=== PATIENT | female | born 1960 | race Caucasian/White ===

== ENCOUNTER 2020-03-22 17:16 | Emergency (ER) | payer BC ==
[~2020-03-22] VITALS: Ht 160 cm; Wt 100.0 kg
[2020-03-22] MEDS ORDERED: MORPHINE SULFATE 4 MG/ML VIAL. IV ONE (18:00)
[2020-03-22] MEDS ORDERED: ONDANSETRON PF 4 MG/2 ML VIAL. IV ONE (18:00)
--- NOTE | 2020-03-22 18:32 | PHYS DOC ---
Past Medical History Past Medical History: Depression Additional Past Medical Histor: depression (RADHA LOPEZ APRN) Past Surgical History: Additional Past Surgical Histo: x3 (RADHA LOPEZ APRN) Smoking Status: Former Smoker Alcohol Use: None Drug Use: None (RADHA LOPEZ APRN) General Adult EDM: Chief Complaint: WRIST PAIN HPI: HPI: Patient is a 59 year old female who presents to the emergency department with complaints of right wrist pain. Patient was working out using a chair when the chair slipped and she fell to the ground. She denies any loss of consciousness head, neck, or back pain after the fall. She currently rates her pain a 10 out of 10 on the pain scale, she denies any decreased movement of her fingers or decreased sensation in her hand. The patient is unsure when her last tetanus shot was (RADHA LOPEZ APRN) Review of Systems: Review of Systems: Constitutional: Denies fever or chills. [] Eyes: Denies change in visual acuity. [] Musculoskeletal: See HPI Integument: Reports laceration to lateral aspect of right wrist Neurologic: Denies focal weakness or sensory changes. [] (RADHA LOPEZ APRN) Heart Score: Risk Factors: Risk Factors: DM, Current or recent (<one month) smoker, HTN, HLP, family history of CAD, obesity. Risk Scores: Score 0 - 3: 2.5% MACE over next 6 weeks - Discharge Home Score 4 - 6: 20.3% MACE over next 6 weeks - Admit for Clinical Observation Score 7 - 10: 72.7% MACE over next 6 weeks - Early Invasive Strategies (RADHA LOPEZ APRN) Current Medications: Current Medications Medications (Trade) Dose Ordered Sig/Jonathan Start Time Stop Time Status Last Admin Dose Admin Morphine Sulfate (Morphine Sulfate) 4 mg 1X ONCE 03/22/20 18:00 03/22/20 18:02 DC Ondansetron HCl (Zofran) 4 mg 1X ONCE 03/22/20 18:00 03/22/20 18:02 DC (RADHA LOPEZ APRN) Allergies: Allergies: Allergies Coded Allergies Type Severity Reaction Last Updated Verified Sulfa (Sulfonamide Antibiotics) Allergy Intermediate 03/08/16 Yes (RADHA LOPEZ APRN) Physical Exam: PE: Constitutional: Well developed, well nourished, no acute distress, non-toxic appearance. [] HENT: Normocephalic, atraumatic, bilateral external ears normal, nose normal. [] Eyes: PERRLA, EOMI, conjunctiva normal, no discharge. [] Neck: Normal range of motion, no stridor. [] Cardiovascular:Heart rate regular rhythm Lungs & Thorax: Respirations even and unlabored, no retractions, no respiratory distress Skin: Warm, dry, no erythema, no rash; 1 cm laceration noted to the lateral right wrist, no active bleeding, no visible foreign body, likely due to open fracture. [] Extremities: Right wrist: Obvious deformity with tenderness to palpation, 2+ edema, 2+ radial pulse, cap refill less than 2 seconds, range of motion limited due to injury Neurologic: Alert and oriented X 3, no focal deficits noted. [] Psychologic: Affect normal, judgement normal, mood normal. [] (RADHA LOPEZ APRN) Current Patient Data: Vital Signs: Vital Signs Date Time Temp Pulse Resp B/P (MAP) Pulse Ox O2 Delivery O2 Flow Rate FiO2 03/22/20 17:44 98.0 48 16 124/48 (73) 96 Room Air 98.0 (RADHA LOPEZ APRN) EKG: EKG: [] (RADHA LOPEZ APRN) Radiology/Procedures: Radiology/Procedures: PROCEDURE: WRIST 3V RIGHT Exam: Right wrist 3 views INDICATION: Right wrist deformity after fall TECHNIQUE: Frontal, lateral and oblique views of the right wrist Comparisons: None FINDINGS: There is a severely displaced fracture through the distal diaphysis of the right radius. No definitive intra-articular extension is identified. No other fractures are seen. There is surrounding soft tissue swelling. Joint spaces are well-maintained. IMPRESSION: Severely displaced mildly comminuted fracture through the distal diaphysis/metaphysis of the right radius. Electronically signed by: Jonny Garsia MD (03/22/2020 6:54 PM) [id number] PROCEDURE: WRIST 2V RIGHT INDICATION: Reason: wrist injury post reduction / Spl. Instructions: / History: COMPARISON: Earlier same day IMPRESSION: Right wrist: 2 views obtained. Splint material is now seen. There is repeat demonstration of a fracture of the distal radius which appears comminuted with posterior displacement again seen. The overall amount of displacement appears slightly decreased but displacement does persist. Electronically signed by: Geovanny Mullins MD (03/22/2020 8:14 PM) [id number] [] (RADHA LOPEZ APRN) Course & Med Decision Making: Course & Med Decision Making Pertinent Labs and Imaging studies reviewed. (See chart for details) 1853- I spoke with who reviewed the patient's x-rays and recommends transfer to a trauma center for treatment of this complex wrist fracture. Will contact . 1913- Spoke with Ralf with the transfer team at [facility] she will call back with accepting physician. 1928-per the transfer team Dr. Yohannes Chew is accepting physician. We will transfer the patient to for further treatment of open fracture. [] (RADHA LOPEZ APRN) Dragon Disclaimer: Draion Disclaimer: Complete ROS is negative unless otherwise noted in HPI. (RADHA LOPEZ APRN) Departure Departure Impression: Primary Impression: Open fracture of right wrist Qualified Codes: S62.101B - Fracture of unspecified carpal bone, right wrist, initial encounter for open fracture Disposition: 05 TRANSFER OTHER Condition: STABLE Referrals: MARKOS JACOB MD (PCP) Justicifation of Admission Dx: Justifications for Admission: Justification of Admission Dx: N/A (RADHA LOPEZ APRN) MODERATE SEDATION ASSESSMENT* RISKS/ALTERNATIVES Risks/Alternatives Risks and alternatives of this type of sedation and procedure discussed with: RISK/ALTERNATIVES: Patient (ASTON JACKSON DO) Risks/Alternatives Risks and alternatives of this type of sedation and procedure discussed with: (RADHA LOPEZ APRN) H & P ON CHART H & P H & P on chart and reviewed for co-morbid conditions and appropriate labs. H&P ON CHART: Yes (ASTON JACKSON DO) H & P H & P on chart and reviewed for co-morbid conditions and appropriate labs. (RADHA LOPEZ APRN) STATUS PREG STATUS ASSESSED: Yes (ASTON JACKSON DO) MEDS/ALLERGIES REVIEWED Meds/Allergies Reviewed Medications and Allergies including time and route of recently administered narcotics and sedatives. MEDS/ALLERGIES REVIEWED: Yes (ASTON JACKSON DO) Meds/Allergies Reviewed Medications and Allergies including time and route of recently administered narcotics and sedatives. (RADHA LOPEZ APRN) ASA RATING ASA RATING: II (ASTON JACKSON DO) AIRWAY ASSESSMENT Airway Assessment Airway patency, oral function limitations, presence of caps, crowns, dentures, partials, and ability to extend neck assessed. AIRWAY ASSESSMENT: Yes (ASTON JACKSON DO) Airway Assessment Airway patency, oral function limitations, presence of caps, crowns, dentures, partials, and ability to extend neck assessed. (RADHA LOPEZ APRN) MALLAMPATI SCORE MALLAMPATI SCORE: II (ASTON JACKSON DO) PRE-SEDATION ASSESSMENT PRE-SEDATION ASSESSMENT: Yes (ASTON JACKSON DO) RADHA LOPEZ APRN Mar 22, 2020 18:32 ASTON JACKSON DO Mar 22, 2020 20:08
[2020-03-22] MEDS ORDERED: ceFAZolin SODIUM IV Push 1 GM VIAL. IVP ONE (18:45)
--- NOTE | 2020-03-22 18:56 | RAD ---
Exam: Right wrist 3 views INDICATION: Right wrist deformity after fall TECHNIQUE: Frontal, lateral and oblique views of the right wrist Comparisons: None FINDINGS: There is a severely displaced fracture through the distal diaphysis of the right radius. No definitive intra-articular extension is identified. No other fractures are seen. There is surrounding soft tissue swelling. Joint spaces are well-maintained. IMPRESSION: Severely displaced mildly comminuted fracture through the distal diaphysis/metaphysis of the right radius. Electronically signed by: Jonny Garsia MD (03/22/2020 6:54 PM) [id number]
[2020-03-22] MEDS ORDERED: fentaNYL PF VIAL 100 MCG/2 ML VIAL IVP ONE (19:00)
[2020-03-22] MEDS ORDERED: IV NORMAL SALINE 1000ML BAG 1,000 ML IV ONE (19:00)
[2020-03-22] MEDS ORDERED: PROPOFOL 10 MG/ML (20ML) VIAL. IV ONE (19:00)
[2020-03-22] MEDS ORDERED: DIPH,PERTUSS(ACELL),TET VAC/PF 0.5 ML SYRINGE. VAX IM ONE (19:30)
[2020-03-22 19:58] VITALS: BP 150/71
--- NOTE | 2020-03-22 20:17 | RAD ---
INDICATION: Reason: wrist injury post reduction / Spl. Instructions: / History: COMPARISON: Earlier same day IMPRESSION: Right wrist: 2 views obtained. Splint material is now seen. There is repeat demonstration of a fracture of the distal radius which appears comminuted with posterior displacement again seen. The overall amount of displacement appears slightly decreased but displacement does persist. Electronically signed by: Geovanny Mullins MD (03/22/2020 8:14 PM) [id number]
[2020-03-22 20:22] VITALS: BP 154/68
== END 2020-03-22 20:36 | disposition short-term general hospital (02) ==
LOC: ER 17:16
DX: S62.101A Fracture of unspecified carpal bone, right wrist, initial encounter for closed fracture (principal); S52.501A Unspecified fracture of the lower end of right radius, initial encounter for closed fracture; Z88.2 Allergy status to sulfonamides; W07.XXXA Fall from chair, initial encounter; Y93.89 Activity, other specified; Y92.89 Other specified places as the place of occurrence of the external cause; Y99.8 Other external cause status
CPT/HCPCS: 25605; 73100; 73110; 90471; 90715; 96361; 96374; 96375; 99285; J0690; J2270; J2405; J2704; J3010; J7030; 29125